=== PATIENT | female | born 1965 | race Hispanic/Latino ===

== ENCOUNTER 2022-02-19 20:06 | Emergency (ER) | payer OTHER ==
[~2022-02-19] VITALS: Ht 149.9 cm; Wt 94.3 kg
[2022-02-19 20:15] VITALS: BP 137/68
--- NOTE | 2022-02-19 20:28 | ER.PDOC ---
General Chief Complaint: Cough/Congestion Stated Complaint: COUGH,CHEST PAIN,BACK PAIN Time seen by MD: 20:21 Source: patient, family Exam Limitations: language barrier ( interprets well for us) History of Present Illness Initial Comments 56 yo F has had cough/cold/URI symptoms for the past 5 days or so. No known sick contacts. Has some aching in her posterior ribs when she has coughing. Nonsmoker, no history of lung disease or asthma. Has had episodes of bronchitis before. ESRD, had hemodialysis yesterday without incident. Timing/Duration: gradual Additional Context: no known sick contacts but has been traveling. Last Covid vaccine was 1 year ago +/-. Severity: moderate Associated Symptoms: cough Prior symptoms/Treatment: Similar symptoms previous Constitutional: denies chills, denies fever EENTM: no symptoms reported Respiratory: cough; denies shortness of breath, denies stridor Cardiovascular: no symptoms reported (some mostly posterior rib cage pain with coughing, no true chest pain) Genitourinary: no symptoms reported Musculoskeletal: no symptoms reported Skin: no symptoms reported Psychiatric/Neurological: no symptoms reported Endocrine: no symptoms reported Hematologic/Lymphatic: no symptoms reported All Other Systems: Reviewed and Negative Past Medical History Medical History: diabetes, hypertension, renal disease (ESRD on HD, last session yesterday) Surgical History: no surgical history Social History Smoking: non-smoker Alcohol Use: none Drug Use: none Reviewed Nursing Reviewed: Vital Signs, Abn. Noted, Nursing Assessment Physical Exam General Appearance: alert, no distress Eye: eyes nml inspection Respiratory: no resp.distress, wheezes (very slight. lungs themselves mostly clear.) Abdomen: non-tender CVS: reg rate & rhythm Skin: color nml, no rash Extremities: non-tender NEURO/PSYCH: oriented x 3, motor nml, sensation nml Results/Orders Results/Orders Orders - GLENN GONZALEZ MD Influenza A&B (02/19/22 20:21) Covid19 Antigen Sandie Jewell (02/19/22 20:21) Cbc With Auto Diff (02/19/22 20:28) Basic Metabolic Panel (02/19/22 20:28) Lactic Acid(Ml) (02/19/22 20:28) Xr Chest 2v (02/19/22 20:28) Albuterol Sulfate (Ventolin) (02/19/22 21:33) Albuterol Sulfate (Ventolin) (02/19/22 21:38) Vital Signs Date Time Temp Pulse Resp B/P (MAP) Pulse Ox O2 Delivery O2 Flow Rate FiO2 02/19/22 21:45 83 18 97 Room Air* 0 21 02/19/22 21:45 83 18 97 Room Air* 0 21 02/19/22 21:44 83 18 97 Room Air* 0 21 02/19/22 20:15 98.4 83 18 97 02/19/22 20:15 98.4 83 18 137/68 (91) 97 Room Air* 0 21 Administered Medications Medications (Trade) Dose Ordered Sig/Lorena Route PRN Reason Start Time Stop Time Status Last Admin Dose Admin Albuterol Sulfate (Ventolin) 1.25 mg STAT STAT IH 02/19/22 21:33 02/19/22 21:34 UNV 02/19/22 21:33 1.25 MG Laboratory Tests Test 02/19/22 20:40 02/19/22 20:42 Influenza Type A Antigen NEGATIVE (NEG) Influenza Type B Antigen NEGATIVE (NEG) SARS-CoV-2 Antigen (Rapid) NEGATIVE (NEGATIVE) White Blood Count 6.0 10^3/uL (4.5-11.0) Red Blood Count 3.63 10^6/uL (4.00-5.20) L Hemoglobin 11.5 g/dL (12.0-15.0) L Hematocrit 37.2 % (36.0-46.0) Mean Corpuscular Volume 102.5 fL (78-100) H Mean Corpuscular Hemoglobin 31.7 pg (26-34) Mean Corpuscular Hemoglobin Concent 30.9 g/dL (33-36.5) L Red Cell Distribution Width 14.3 % (11.5-14.5) Platelet Count 79 10^3/uL (150-400) L Mean Platelet Volume 12.9 fL (7.8-11.0) H Neutrophils (%) (Auto) 49.9 % (41.0-85.0) Lymphocytes (%) (Auto) 43.9 % (24.0-44.0) Monocytes (%) (Auto) 4.9 % (5.0-12.0) L Neutrophils # (Auto) 3.0 10^3/uL (1.8-7.7) Lymphocytes # (Auto) 2.61 10^3/uL1 (1.0-4.8) Monocytes # (Auto) 0.3 10^3/uL (0.3-0.8) Absolute Immature Granulocyte (auto 0.01 10^3 u/L (0-2) Absolute Eosinophils (auto) 0.1 10^3/uL (0.0-0.2) Immature Granulocytes % 0.20 % (0.00-0.50) Eosinophils % 1.0 % (0.0-5.0) Basophils % 0.3 % (0.0-0.2) H Basophils # 0.0 10^3/uL (0.0-0.1) Sodium Level 139 mmol/L (132-145) Potassium Level 3.9 mmol/L (3.6-5.2) Chloride Level 99.0 mmol/L (96-109) Carbon Dioxide Level 31.5 mmol/L (20.0-32) Glucose Level 176 mg/dL (70-110) H Blood Urea Nitrogen 36 mg/dL (7-18) H Creatinine 6.49 mg/dL (0.59-1.40) *H Calcium Level 8.9 mg/dL (8.4-10.5) Anion Gap 12.4 Estimated GFR () 8.0 (>/=60) Est GFR (CKD-EPI)(Non-Afr Bahamian) 6.6 (>/=60) BUN/Creatinine Ratio 5.0 Lactic Acid Level 3.7 mmol/L (0.5-1.9) *H Progress Progress I have reflected upon and researched the elevated lactic acid, but these values are consistent with being ~30ish hours out from hemodialysis. I am not minded to attribute more to this than is appropriate. Some albuterol may help a bit, but I am not minded to prescribe it; some mucinex DM will be helpful. ER DEPART Departure Time of Disposition: 21:52 Disposition: 01 HOME / SELF CARE / HOMELESS Impression: Primary Impression: Acute bronchitis Condition: Stable Patient Instructions: Bronchitis, [id number] Referrals: PCP,UNKNOWN (PCP) PRIMARY CARE PROVIDER Additional Instructions: Take medications as directed. Follow up or return if symptoms significantly worsen. Comments Rx mucinex DM given Duration or Time Spent with Pa: 15 min GLENN GONZALEZ MD Feb 19, 2022 20:27
[2022-02-19 20:59] LABS: BASOPHIL % 0.3 % (0.0-0.2); EOSINOPHIL # 0.1 10^3/uL (0.0-0.2); LYMPHOCYTES # 2.61 10^3/uL1 (1.0-4.8); LYMPHOCYTES % 43.9 % (24.0-44.0); MEAN CORP HGB 31.7 pg (26-34); MONOCYTES # 0.3 10^3/uL (0.3-0.8); MONOCYTES % 4.9 % (5.0-12.0); NEUTROPHILS % 49.9 % (41.0-85.0); PLATELET COUNT 79 10^3/uL (150-400); RED CELL DISTRIBUTION WIDTH 14.3 % (11.5-14.5)
--- NOTE | 2022-02-19 21:01 | DIREP ---
PROCEDURE:CHEST 2 VIEWS COMPARISON:None. INDICATIONS:cough FINDINGS: LUNGS/PLEURA:No significant pulmonary parenchymal abnormalities. No effusions. VASCULATURE:Normal. Unremarkable pulmonary vasculature. CARDIAC:Normal. No cardiac silhouette abnormality or cardiomegaly. MEDIASTINUM:Calcified plaque in the aorta. BONES:Normal. No fracture or visible bony lesion. OTHER:Negative. CONCLUSION:No acute cardiopulmonary findings. Dictated by: Adiel Saucedo M.D. on 02/19/2022 at 08:59 PM
[2022-02-19 21:02] LABS: CARBON DIOXIDE 31.5 mmol/L (20.0-32)
[2022-02-19] MEDS ORDERED: VENTOLIN IH STA (21:33)
[2022-02-19] MEDS ORDERED: VENTOLIN IH ONE (21:38)
== END 2022-02-19 22:15 | disposition home or self-care (01) ==
LOC: ER 20:06
DX: J20.9 Acute bronchitis, unspecified (principal); E11.22 Type 2 diabetes mellitus with diabetic chronic kidney disease; I12.0 Hypertensive chronic kidney disease with stage 5 chronic kidney disease or end stage renal disease; J00 Acute nasopharyngitis [common cold]; N18.6 End stage renal disease; Z99.2 Dependence on renal dialysis; Z20.822 Contact with and (suspected) exposure to COVID-19
CPT/HCPCS: 99284; 71046; 87426; 85025; 36415; 80048; 83605; 87804 ×2; 94640; J7613

== ENCOUNTER 2022-04-15 11:51 | Emergency (ER) | payer OTHER ==
[~2022-04-15] VITALS: Ht 162.6 cm; Wt 85.3 kg
--- NOTE | 2022-04-15 11:54 | NUR ---
ARRIVAL PT ARRIVED AMBULATORY TO ED 3 WITH C/O COUGH AND WHEEZING FOR [address] NOTIFIED.
[2022-04-15 12:01] VITALS: BP 116/55
[2022-04-15] MEDS ORDERED: PREDNISONE PO STA (12:04)
[2022-04-15] MEDS ORDERED: NORCO 10MG PO STA (12:04)
[2022-04-15] MEDS ORDERED: DUO 0.5-3(2.5) MG/3 ML IH STA (12:04)
--- NOTE | 2022-04-15 12:11 | ER.PDOC ---
General Chief Complaint: Cough/Congestion Stated Complaint: COUGH/WHEEZING Time seen by MD: 12:11 Source: patient Exam Limitations: no limitations History of Present Illness Timing/Duration: gradual Severity: mild Associated Symptoms: hoarseness, cough, productive cough, mild SOB Worsen By: deep breathing Prior symptoms/Treatment: Similar symptoms previous Allergies: Coded Allergies: No Known Allergies (Unverified , 04/15/22) Constitutional: no symptoms reported EENTM: no symptoms reported Respiratory: cough, wheezing Cardiovascular: no symptoms reported Gastrointestinal: no symptoms reported Genitourinary: no symptoms reported Musculoskeletal: no symptoms reported Skin: no symptoms reported All Other Systems: Reviewed and Negative Past Medical History Medical History: diabetes, hypertension, renal disease Surgical History: no surgical history Social History Alcohol Use: none Drug Use: none Reviewed Nursing Reviewed: Vital Signs, Abn. Noted Physical Exam General Appearance: alert, no distress Eye: eyes nml inspection, lids & conjunct. nml, PERRL, no nystagmus Ear: ear nml Nose: nose nml Throat: pharynx nml, airway nml Neck: nml inspection, supple Respiratory: rales, rhonchi Abdomen: non-tender, no organomegaly CVS: reg rate & rhythm, heart sounds nml Skin: color nml, no rash, warm/dry Extremities: non-tender, nml ROM, no pedal edema NEURO/PSYCH: oriented x 3, CN's nml as tested, motor nml, sensation nml, mood/affect nml Results/Orders Results/Orders Orders - YAIR TEAGUE MD Covid19 Antigen Sandie Jewell (04/15/22 12:04) Influenza A&B (04/15/22 12:04) Prednisone (Prednisone) (04/15/22 12:04) Hydrocodone/Acetaminophen ([place] 10mg) (04/15/22 12:04) Ipratropium/Albuterol Sulfate (Duo 0.5-3 (04/15/22 12:04) Xr Chest 1v (04/15/22 12:04) Prednisone (Prednisone) (04/15/22 12:12) Hydrocodone/Acetaminophen ([place] 10mg) (04/15/22 12:12) Ipratropium/Albuterol Sulfate (Duo 0.5-3 (04/15/22 12:14) Vital Signs Date Time Temp Pulse Resp B/P (MAP) Pulse Ox O2 Delivery O2 Flow Rate FiO2 04/15/22 12:01 98.2 73 18 100 04/15/22 12:01 98.2 73 18 04/15/22 12:01 98.2 73 18 116/55 (75) 100 Room Air* 0 21 Administered Medications Medications (Trade) Dose Ordered Sig/Lorena Route PRN Reason Start Time Stop Time Status Last Admin Dose Admin Acetaminophen/ Hydrocodone Bitart ([place] 10mg) 1 each STAT STAT PO 04/15/22 12:04 04/15/22 12:09 DC 04/15/22 12:14 1 EACH Albuterol/ Ipratropium (Duo 0.5-3(2.5) Mg/3 ml) 3 ml STAT STAT IH 04/15/22 12:04 04/15/22 12:09 DC 04/15/22 12:17 3 ML Prednisone (Prednisone) 40 mg STAT STAT PO 04/15/22 12:04 04/15/22 12:09 DC 04/15/22 12:14 40 MG Laboratory Tests Test 04/15/22 12:03 Influenza Type A Antigen NEGATIVE (NEG) Influenza Type B Antigen NEGATIVE (NEG) SARS-CoV-2 Antigen (Rapid) NEGATIVE (NEGATIVE) ER DEPART Departure Time of Disposition: 12:55 Disposition: 01 HOME / SELF CARE / HOMELESS Impression: Primary Impression: Acute bronchitis Condition: Improved Referrals: PCP,UNKNOWN (PCP) PRIMARY CARE PROVIDER Duration or Time Spent with Pa: 19m YAIR TEAGUE MD Apr 15, 2022 12:11
[2022-04-15] MEDS ORDERED: NORCO 10MG PO ONE (12:12)
[2022-04-15] MEDS ORDERED: PREDNISONE ONE (12:12)
[2022-04-15] MEDS ORDERED: DUO 0.5-3(2.5) MG/3 ML IH ONE (12:14)
--- NOTE | 2022-04-15 12:31 | DIREP ---
PROCEDURE:CHEST 1 VIEW COMPARISON:[facility], CR, XRAY CHEST 2 VWS, 02/19/2022, 08:38 PM. INDICATIONS:cough FINDINGS: LUNGS/PLEURA:No significant pulmonary parenchymal abnormalities. No effusions. VASCULATURE:Normal. Unremarkable pulmonary vasculature. CARDIAC:Normal. No cardiac silhouette abnormality or cardiomegaly. MEDIASTINUM:Calcified aorta. BONES:Degenerative changes. OTHER:Negative. CONCLUSION:No acute pulmonary process. Dictated by: Jason Zhang M.D. on 04/15/2022 at 12:29 PM
[2022-04-15 12:52] VITALS: BP 132/59
== END 2022-04-15 12:54 | disposition home or self-care (01) ==
LOC: ER 11:51
DX: J20.9 Acute bronchitis, unspecified (principal); E11.9 Type 2 diabetes mellitus without complications; I10 Essential (primary) hypertension; Z87.442 Personal history of urinary calculi; Z20.822 Contact with and (suspected) exposure to COVID-19
CPT/HCPCS: 99284; 71045; 87426; 87804 ×2; 94640; J7512